=== PATIENT | female | born 1960 | race African-American/Black ===

== ENCOUNTER 2017-10-25 12:20 | Emergency (ER) | payer MEDICAID ==
[~2017-10-25] VITALS: Ht 175.3 cm; Wt 88.0 kg
[~2017-10-25 12:20] MED LIST: LISI10TA5 PO; NAPR-677
[2017-10-25] MEDS ORDERED: IBUPROFEN 600MG TABLET PO ONE (12:45)
[2017-10-25] MEDS ORDERED: CYCLOBENZAPRINE 10MG TABLET PO ONE (13:30)
[2017-10-25 13:40] VITALS: BP 182/104
== END 2017-10-25 13:43 | disposition home or self-care (01) ==
LOC: ER 12:59
DX: S40.011A Contusion of right shoulder, initial encounter (principal); M62.830 Muscle spasm of back; E05.90 Thyrotoxicosis, unspecified without thyrotoxic crisis or storm; I10 Essential (primary) hypertension; W20.8XXA Other cause of strike by thrown, projected or falling object, initial encounter; Y93.89 Activity, other specified; Y92.59 Other trade areas as the place of occurrence of the external cause; Y99.8 Other external cause status
CPT/HCPCS: 73030; 99284

== ENCOUNTER 2018-09-13 13:10 | Emergency (ER) | payer MEDICAID, MEDICARE ==
[~2018-09-13] VITALS: Ht 175.3 cm; Wt 88.0 kg
[2018-09-13 13:55] VITALS: BP 144/92
[2018-09-13] MEDS ORDERED: ZOLP10TA6 PO (13:59)
== END 2018-09-13 18:12 | disposition left against medical advice (07) ==
LOC: ER 13:10
DX: Z53.21 Procedure and treatment not carried out due to patient leaving prior to being seen by health care provider (principal)

== ENCOUNTER 2018-11-13 11:48 | Emergency (ER) | payer MEDICARE ==
[~2018-11-13] VITALS: Ht 175.3 cm; Wt 89.0 kg
[~2018-11-13 11:48] MED LIST changes: -LISI10TA5 PO; +ZOLP10TA6 PO
[2018-11-13] MEDS ORDERED: KETOROLAC 60MG/2ML VIAL IM ONE (13:30)
[2018-11-13 16:34] VITALS: BP 148/85
== END 2018-11-13 16:35 | disposition home or self-care (01) ==
LOC: ER 11:48
DX: S16.1XXA Strain of muscle, fascia and tendon at neck level, initial encounter (principal); V49.60XA Unspecified car occupant injured in collision with unspecified motor vehicles in traffic accident, initial encounter; Y93.89 Activity, other specified; Y92.410 Unspecified street and highway as the place of occurrence of the external cause; S39.012A Strain of muscle, fascia and tendon of lower back, initial encounter; I71.2 Thoracic aortic aneurysm, without rupture
CPT/HCPCS: 72100; 72125; 96372; 99284; J1885

== ENCOUNTER 2019-01-10 14:15 | Emergency (ER) | payer MEDICARE ==
[~2019-01-10] VITALS: Ht 175.3 cm; Wt 88.1 kg
[2019-01-10] MEDS ORDERED: ACETAMINOPHEN 500MG TABLET PO NR (15:45)
[2019-01-10 16:20] VITALS: BP 136/100
== END 2019-01-10 16:21 | disposition home or self-care (01) ==
LOC: ER 14:15
DX: S16.1XXA Strain of muscle, fascia and tendon at neck level, initial encounter (principal); S39.012A Strain of muscle, fascia and tendon of lower back, initial encounter; V49.59XA Passenger injured in collision with other motor vehicles in traffic accident, initial encounter; Y93.89 Activity, other specified; Y92.410 Unspecified street and highway as the place of occurrence of the external cause
CPT/HCPCS: 99282

== ENCOUNTER 2019-02-11 11:38 | Emergency (ER) | payer MEDICARE ==
[~2019-02-11] VITALS: Ht 177.8 cm; Wt 90.0 kg
[2019-02-11 12:55] LABS: BG BASE EXCESS 4.7 mmol/L (-2.0-2.0); BG CARBOXYHEMOGLOBIN 0.6 % (0.5-1.5); BG DEOXYHEMOGLOBIN 5.3 % (0.0-5.0); BG FRACTION INSPIRED OXYGEN 21; BG HCO3 ACT 27.3 mmol/L (22.0-26.0); BG OXYGEN SATURATION 94.7 % (92.0-98.5); BG OXYHEMOGLOBIN 94.1 % (94.0-97.0); BG PCO2 34.3 mmHg (35.0-45.0); BG PH 7.519 (7.350-7.450); BG PO2 66.3 mmHg (75.0-100.0); BG SAMPLE SITE RIGHT BRACHIAL; BG VENT MODE ROOM AIR
[2019-02-11] MEDS ORDERED: ALBUTEROL (0.5%) 2.5MG/0.5ML NEB HHN ONE (13:30)
[2019-02-11] MEDS ORDERED: LORAZEPAM 1MG TABLET PO ONE (13:45)
[2019-02-11 14:01] LABS: BASOPHILS % 0.8 % (0.0-2.0); CHLORIDE 102 mEq/L (98-107); EOSINOPHILS % 3.7 % (0.0-5.0); HEMATOCRIT. 45.9 % (36.0-48.0); HEMOGLOBIN. 15.3 g/dL (12.0-16.0); LYMPHOCYTES % 44.9 % (20.0-50.0); MEAN CORPUSCULAR HEMOGLOBIN 30.1 pg (28.0-32.0); MEAN CORPUSCULAR VOLUME 90.7 fL (81.0-99.0); MEAN PLATELET VOLUME 8.3 fl (7.4-10.4); NEUTROPHILS % 43.6 % (40.0-76.0); PLATELET 328 x1000/uL (130-400); RED BLOOD CELL COUNT 5.06 mill/uL (4.2-5.4); RED CELL DISTRIBUTION WIDTH 15.2 % (11.6-14.6)
[2019-02-11 15:34] LABS: *AMPHETAMINES SCREEN URINE NEGATIVE (NEGATIVE); *BARBITURATES SCREEN URINE NEGATIVE (NEGATIVE); *BENZODIAZEPINES SCREEN URINE NEGATIVE (NEGATIVE); *COCAINE SCREEN URINE NEGATIVE (NEGATIVE); METHADONE URINE SCREEN NEGATIVE (NEGATIVE); OPIATES URINE SCREEN NEGATIVE (NEGATIVE); PHENCYCLIDINE URINE SCREEN NEGATIVE (NEGATIVE)
[2019-02-11 15:35] LABS: CANNABINOID URINE SCREEN NEGATIVE (NEGATIVE)
[2019-02-11 16:47] VITALS: BP 112/79
== END 2019-02-11 16:54 | disposition home or self-care (01) ==
LOC: ER 11:38
DX: R06.02 Shortness of breath (principal)
CPT/HCPCS: 36415; 36600; 71045; 71250; 80053; 80305; 82375; 82805; 83880; 84484; 85025; 93005; 94640; 99284; J7611; Z7610

== ENCOUNTER 2019-10-19 13:17 | Inpatient (IN) | payer MEDICAID, MEDICARE ==
[~2019-10-19] VITALS: Ht 177.8 cm; Wt 86.6 kg
[2019-10-19] MEDS ORDERED: SODIUM CHLORIDE 0.9% 1,000 ML IV ONE ×2 (14:23→14:31)
[2019-10-19] MEDS ORDERED: MORPHINE SULFATE 4 MG/ML CPJ (NOT FOR IM USE) IV STA (14:31)
[2019-10-19] MEDS ORDERED: FAMOTIDINE 20MG/2ML VIAL IV STA (14:31)
[2019-10-19] MEDS ORDERED: ONDANSETRON HCL 4MG/2ML INJ IV STA (14:31)
[2019-10-19 14:53] LABS: CHLORIDE 96 mEq/L (98-107)
[2019-10-19 14:58] LABS: INR 1.1; PROTHROMBIN TIME 11.4 sec (9.6-11.0)
[2019-10-19 15:13] LABS: BASOPHILS % 0.5 % (0.0-2.0); EOSINOPHILS % 0.2 % (0.0-5.0); HEMATOCRIT. 45.9 % (36.0-48.0); HEMOGLOBIN. 15.7 g/dL (12.0-16.0); MEAN CORPUSCULAR VOLUME 90.8 fL (81.0-99.0); MEAN PLATELET VOLUME 8.8 fl (7.4-10.4); MONOCYTES % 8.4 % (2.0-8.0); NEUTROPHILS % 72.9 % (40.0-76.0); PLATELET 250 x1000/uL (130-400); RED BLOOD CELL COUNT 5.05 mill/uL (4.2-5.4); RED CELL DISTRIBUTION WIDTH 15.2 % (11.6-14.6)
[2019-10-19 15:22] LABS: CLARITY URINE CLOUDY (CLEAR); COLOR URINE YELLOW (YELLOW); KETONES URINE 1+ (NEGATIVE); LEUKOCYTE ESTERASE URINE NEGATIVE (NEGATIVE); NITRITE URINE NEGATIVE (NEGATIVE); OCCULT BLOOD URINE 1+ (NEGATIVE); PROTEIN URINE TRACE (NEGATIVE); SPECIFIC GRAVITY URINE 1.017 (1.005-1.030)
[2019-10-19] MEDS ORDERED: POTASSIUM CHLORIDE 20MEQ TABLET SR PO ONE ×2 (17:45→18:30)
[2019-10-19] MEDS ORDERED: DIATR MEGLU/DIATRIZOATE SOLN 30ML ONE (17:56)
[2019-10-19] MEDS ORDERED: TRAZODONE HCL 50MG TABLET PO PRN (18:30)
[2019-10-19] MEDS ORDERED: ACETAMINOPHEN 325MG TABLET PO PRN (18:30)
[2019-10-19] MEDS ORDERED: MORPHINE SULFATE 4 MG/ML CPJ (NOT FOR IM USE) IV PRN (18:30)
[2019-10-19] MEDS ORDERED: ONDANSETRON HCL 4MG/2ML INJ IV PRN (18:30)
[2019-10-19] MEDS ORDERED: IOHEXOL-300 100 ML BOTTLE ONE (20:53)
[2019-10-20] VITALS (7 sets, daily range): BP systolic 103–122; BP diastolic 60–78
[2019-10-20] MEDS: MORPHINE SULFATE 2 MG/ML CPJ (NOT FOR IM USE) IV PRN ×2 (03:00→22:35)
[2019-10-20] MEDS: DEXT 5%/0.45% NACL 1000ML 1,000 ML IV SCH ×2 (06:31→21:06)
[2019-10-20 06:42] LABS: BASOPHILS % 0.5 % (0.0-2.0); EOSINOPHILS % 1.6 % (0.0-5.0); HEMATOCRIT. 40.8 % (36.0-48.0); HEMOGLOBIN. 13.9 g/dL (12.0-16.0); LYMPHOCYTES % 25.1 % (20.0-50.0); MEAN CORPUSCULAR HEMOGLOBIN 30.8 pg (28.0-32.0); MEAN CORPUSCULAR VOLUME 90.2 fL (81.0-99.0); MEAN PLATELET VOLUME 8.8 fl (7.4-10.4); MONOCYTES % 9.4 % (2.0-8.0); NEUTROPHILS % 63.4 % (40.0-76.0); PLATELET 211 x1000/uL (130-400); RED BLOOD CELL COUNT 4.52 mill/uL (4.2-5.4); RED CELL DISTRIBUTION WIDTH 14.7 % (11.6-14.6)
[2019-10-20 06:58] LABS: CHLORIDE 98 mEq/L (98-107)
[2019-10-20] MEDS ORDERED: TRAM50TA94 MT (07:50)
[2019-10-20] MEDS ORDERED: TRIA1TAB92 MT (07:50)
[2019-10-20] MEDS ORDERED: DICL50TA9 MT (07:50)
[2019-10-20] MEDS ORDERED: OXYB5TAB17 PO (07:50)
[2019-10-20] MEDS ORDERED: POTASSIUM CHLORIDE 20MEQ TABLET SR PO NR (10:00)
[2019-10-20] MEDS ORDERED: PNEUMOCOCCAL 23-VAL P-SAC VAC 0.5 ML IM ONE (12:00)
[2019-10-20] MEDS ORDERED: MIDAZOLAM HCL 5 MG/5 ML VIAL ONE (15:45)
[2019-10-20] MEDS ORDERED: FENTANYL CITRATE/PF 50MCG/ML 2ML VIAL ONE (15:45)
[2019-10-20] MEDS ORDERED: MIDAZOLAM HCL 5 MG/5 ML VIAL IV PRN (15:55)
[2019-10-20] MEDS ORDERED: FENTANYL CITRATE/PF 50MCG/ML 2ML VIAL IV PRN (15:57)
[2019-10-20 21:05] LABS: CHLORIDE 101 mEq/L (98-107)
[2019-10-20 21:09] LABS: AMYLASE 101 IU/L (25-115)
[2019-10-20] MEDS: HEPARIN 5000 UNITS/ML VIAL SUBCUT SCH (21:50)
[2019-10-21] VITALS: BP 103/61
[2019-10-21 04:00] VITALS: BP 108/65
[2019-10-21 05:15] LABS: BASOPHILS % 0.4 % (0.0-2.0); EOSINOPHILS % 7.2 % (0.0-5.0); HEMATOCRIT. 40.4 % (36.0-48.0); HEMOGLOBIN. 13.7 g/dL (12.0-16.0); LYMPHOCYTES % 30.4 % (20.0-50.0); MEAN CORPUSCULAR HEMOGLOBIN 30.9 pg (28.0-32.0); MEAN CORPUSCULAR VOLUME 91.4 fL (81.0-99.0); MEAN PLATELET VOLUME 8.5 fl (7.4-10.4); MONOCYTES % 6.7 % (2.0-8.0); NEUTROPHILS % 55.3 % (40.0-76.0); PLATELET 228 x1000/uL (130-400); RED BLOOD CELL COUNT 4.42 mill/uL (4.2-5.4); RED CELL DISTRIBUTION WIDTH 14.8 % (11.6-14.6)
[2019-10-21 05:40] LABS: CHLORIDE 101 mEq/L (98-107)
[2019-10-21 08:00] VITALS: BP 102/72
[2019-10-21] MEDS: HEPARIN 5000 UNITS/ML VIAL SUBCUT SCH ×2 (08:32→08:33)
[2019-10-21] MEDS: DEXT 5%/0.45% NACL 1000ML 1,000 ML IV SCH (10:14)
[2019-10-21] MEDS: MORPHINE SULFATE 2 MG/ML CPJ (NOT FOR IM USE) IV PRN (10:14)
[2019-10-21 11:53] LABS: CREATINE KINASE 104 IU/L (26-192)
[2019-10-21 12:00] VITALS: BP 131/74
[2019-10-21] MEDS ORDERED: KETOROLAC 30MG/ML VIAL IV PRN (13:00)
[2019-10-21] MEDS ORDERED: PANT40TA4 MT (13:02)
[2019-10-21 13:12] VITALS: BP 131/74
== END 2019-10-21 13:52 | disposition home or self-care (01) | DRG 241 ==
LOC: ER 13:17 → 6EST 17:21 → EDBEDREQSVC 17:24 → EDBEDREQ 17:24 → EDBEDREQSVC 18:35 → EDBEDREQTM 22:23 → ENRESERV 23:12
PROVIDERS: ADMIT Internal Medicine; ATTEND Internal Medicine
PROC: 0DB68ZX Excision of Stomach, Via Natural or Artificial Opening Endoscopic, Diagnostic (ICD-10-PCS; principal; 2019-10-20)
DX: K29.70 Gastritis, unspecified, without bleeding (principal); K85.90 Acute pancreatitis without necrosis or infection, unspecified; I71.2 Thoracic aortic aneurysm, without rupture; E87.8 Other disorders of electrolyte and fluid balance, not elsewhere classified; E87.1 Hypo-osmolality and hyponatremia; K29.80 Duodenitis without bleeding; D72.810 Lymphocytopenia; G89.4 Chronic pain syndrome; E87.6 Hypokalemia; I10 Essential (primary) hypertension; E03.9 Hypothyroidism, unspecified; E78.00 Pure hypercholesterolemia, unspecified; E21.3 Hyperparathyroidism, unspecified; M47.9 Spondylosis, unspecified; K75.9 Inflammatory liver disease, unspecified; D25.9 Leiomyoma of uterus, unspecified; I45.10 Unspecified right bundle-branch block; I71.4 Abdominal aortic aneurysm, without rupture; R79.89 Other specified abnormal findings of blood chemistry; Z91.040 Latex allergy status; Z91.09 Other allergy status, other than to drugs and biological substances; Z79.899 Other long term (current) drug therapy; Z86.79 Personal history of other diseases of the circulatory system; Z82.49 Family history of ischemic heart disease and other diseases of the circulatory system
CPT/HCPCS: 36415; 71045; 74176; 74177; 74181; 76705; 80053; 80061; 81003; 82150; 82248; 82550; 83735; 83880; 84484; 85025; 86301; 86705; 86709; 86803; 87340; 88305; 88312; 88313; 90732; 93005; 93306; 96374; 99285; J1644; J2250; J2270; J2405; J3010; J3490; J7030; Q9963; Q9967

== ENCOUNTER 2020-01-18 16:04 | Emergency (ER) | payer MEDICAID ==
[~2020-01-18] VITALS: Ht 175.3 cm; Wt 84.8 kg
[~2020-01-18 16:04] MED LIST changes: -NAPR-677; +OXYB5TAB17 PO; +PANT40TA4 MT; +TRAM50TA94 MT; +TRIA1TAB92 MT
[2020-01-18] MEDS ORDERED: ONDANSETRON 4MG ODT PO ONE (17:15)
[2020-01-18] MEDS ORDERED: ACETAMINOPHEN 325MG TABLET PO ONE (17:15)
[2020-01-18] MEDS ORDERED: METOCLOPRAMIDE HCL 10MG/2ML VIAL IV ONE (18:15)
[2020-01-18] MEDS ORDERED: DIPHENHYDRAMINE 50MG/ML VIAL IV ONE (18:15)
[2020-01-18 18:46] LABS: CHLORIDE 99 mEq/L (98-107)
[2020-01-18 19:02] LABS: BASOPHILS % 0.6 % (0.0-2.0); EOSINOPHILS % 2.1 % (0.0-5.0); HEMATOCRIT. 45.1 % (36.0-48.0); HEMOGLOBIN. 14.9 g/dL (12.0-16.0); LYMPHOCYTES % 43.7 % (20.0-50.0); MEAN CORPUSCULAR HEMOGLOBIN 29.9 pg (28.0-32.0); MEAN CORPUSCULAR VOLUME 90.5 fL (81.0-99.0); MEAN PLATELET VOLUME 8.6 fl (7.4-10.4); NEUTROPHILS % 46.6 % (40.0-76.0); PLATELET 274 x1000/uL (130-400); RED BLOOD CELL COUNT 4.99 mill/uL (4.2-5.4); RED CELL DISTRIBUTION WIDTH 14.7 % (11.6-14.6)
[2020-01-18] MEDS ORDERED: POTASSIUM CHLORIDE 20MEQ TABLET SR PO ONE (19:15)
[2020-01-18 19:38] VITALS: BP 128/85
== END 2020-01-18 19:40 | disposition home or self-care (01) ==
LOC: ER 16:04
DX: R51 Headache (principal); I10 Essential (primary) hypertension; E05.90 Thyrotoxicosis, unspecified without thyrotoxic crisis or storm
CPT/HCPCS: 36415; 70450; 80053; 85025; 96374; 96375; 99284; J1200; J2765; Q0162

== ENCOUNTER 2020-04-21 18:46 | Emergency (ER) | payer MEDICAID ==
[~2020-04-21] VITALS: Ht 175.3 cm; Wt 86.0 kg
[~2020-04-21 18:46] MED LIST changes: -PANT40TA4 MT; +PANT40TA51 MT
[2020-04-21 18:49] VITALS: BP 134/94
[2020-04-21] MEDS ORDERED: MAGNESIUM/ALUMINUM HYDROXIDE/SIMETHICONE 30ML UDC PO STA (18:53)
[2020-04-21] MEDS ORDERED: VISCOUS LIDOCAINE 2% 15 ML UDC PO STA (18:53)
[2020-04-21] MEDS ORDERED: ACETAMINOPHEN 325MG TABLET PO ONE (19:00)
== END 2020-04-21 22:38 | disposition left against medical advice (07) ==
LOC: ER 18:46
DX: R10.13 Epigastric pain (principal); R07.89 Other chest pain; I10 Essential (primary) hypertension; E03.9 Hypothyroidism, unspecified; Z53.21 Procedure and treatment not carried out due to patient leaving prior to being seen by health care provider
CPT/HCPCS: 93005; 99283

== ENCOUNTER 2021-07-11 09:55 | Inpatient (IN) | payer MEDICAID ==
[~2021-07-11] VITALS: Ht 175.3 cm; Wt 88.0 kg
[2021-07-11 11:19] LABS: HEMATOCRIT. 40.7 % (36.0-48.0); HEMOGLOBIN. 13.6 g/dL (12.0-16.0); MEAN CORPUSCULAR HEMOGLOBIN 29.7 pg (28.0-32.0); MEAN CORPUSCULAR VOLUME 88.8 fL (81.0-99.0); MEAN PLATELET VOLUME 7.9 fl (7.4-10.4); PLATELET 230 x1000/uL (130-400); RED BLOOD CELL COUNT 4.58 mill/uL (4.2-5.4)
[2021-07-11 11:26] LABS: CHLORIDE 107 mEq/L (98-107)
[2021-07-11 11:52] LABS: PLATELET ESTIMATE NORMAL
[2021-07-11] MEDS ORDERED: ASPIRIN 81MG TABLET PO ONE (15:00)
[2021-07-11] MEDS ORDERED: GUAIFENESIN 200MG/10ML SUGAR FREE UDC PO PRN (18:45)
[2021-07-11] MEDS ORDERED: ACETAMINOPHEN 325MG TABLET PO PRN (18:45)
[2021-07-11] MEDS ORDERED: MAGNESIUM/ALUMINUM HYDROXIDE/SIMETHICONE 30ML UDC PO PRN (18:45)
[2021-07-11] MEDS ORDERED: ENOXAPARIN 40MG/0.4ML SYR SUBCUT SCH ×3 (18:45→20:00)
[2021-07-11] MEDS ORDERED: DIPHENHYDRAMINE 50MG/ML VIAL IV PRN (18:45)
[2021-07-11] MEDS ORDERED: CLONIDINE 0.1MG TABLET PO PRN (18:45)
[2021-07-11] MEDS ORDERED: DOCUSATE SODIUM 100MG CAPSULE PO PRN (18:45)
[2021-07-11] MEDS ORDERED: HYDROCODONE/ACETAMINOPHEN 5/325MG TABLET PO PRN (18:45)
[2021-07-11] MEDS ORDERED: ONDANSETRON HCL 4MG/2ML INJ IV PRN (18:45)
[2021-07-11] MEDS ORDERED: IPRATROPIUM/ALBUTEROL 0.5-3(2.5)MG/3ML NEB HHN PRN (18:45)
[2021-07-11] MEDS ORDERED: HYDRALAZINE 20MG/ML VIAL IV PRN (18:45)
[2021-07-11] MEDS ORDERED: LORAZEPAM 2MG/ML CPJ IV PRN (18:45)
[2021-07-11] MEDS ORDERED: MORPHINE SULFATE 2 MG/ML CPJ (NOT FOR IM USE) IV PRN (19:08)
[2021-07-11] MEDS: SODIUM CHLORIDE 0.9% INJ 3ML FLUSH IVF SCH (22:03)
[2021-07-11 22:35] LABS: CREATINE KINASE 128 IU/L (26-192)
[2021-07-11 22:36] LABS: CREATINE KINASE MB FRACTION < 1.0 ng/mL (0.5-3.6)
[2021-07-11] MEDS ORDERED: PANT40TA51 PO (23:46)
[2021-07-11] MEDS ORDERED: HYDR200T35 PO (23:46)
[2021-07-11] MEDS ORDERED: FOLI-43 PO (23:57)
[2021-07-11] MEDS ORDERED: ATOR20TA65 PO (23:57)
[2021-07-11] MEDS ORDERED: MELO-106 PO (23:57)
[2021-07-11] MEDS ORDERED: OMEG-161 PO (23:57)
[2021-07-11] MEDS ORDERED: VALS160T28 PO (23:57)
[2021-07-12] VITALS (7 sets, daily range): BP systolic 104–138; BP diastolic 59–91
[2021-07-12] MEDS: SODIUM CHLORIDE 0.9% INJ 3ML FLUSH IVF SCH ×2 (06:00→14:00)
[2021-07-12 07:23] LABS: CHLORIDE 108 mEq/L (98-107)
[2021-07-12 07:41] LABS: CREATINE KINASE MB FRACTION < 1.0 ng/mL (0.5-3.6)
[2021-07-12 07:42] LABS: BASOPHILS % 0.3 % (0.0-2.0); CREATINE KINASE 115 IU/L (26-192); EOSINOPHILS % 4.4 % (0.0-5.0); HEMATOCRIT. 41.2 % (36.0-48.0); HEMOGLOBIN. 13.7 g/dL (12.0-16.0); LYMPHOCYTES % 54.2 % (20.0-50.0); MEAN CORPUSCULAR HEMOGLOBIN 29.6 pg (28.0-32.0); MEAN CORPUSCULAR VOLUME 88.8 fL (81.0-99.0); MEAN PLATELET VOLUME 8.5 fl (7.4-10.4); MONOCYTES % 6.9 % (2.0-8.0); NEUTROPHILS % 34.2 % (40.0-76.0); PLATELET 224 x1000/uL (130-400); RED BLOOD CELL COUNT 4.63 mill/uL (4.2-5.4); RED CELL DISTRIBUTION WIDTH 15.1 % (11.6-14.6)
[2021-07-12] MEDS ORDERED: HEPARIN SODIUM 1,000 UNIT/1ML VIAL IV ONE (08:33)
[2021-07-12] MEDS ORDERED: NITROGLYCERIN 50MCG/ML 10ML VIAL (CATH LAB) IV ONE (08:33)
[2021-07-12] MEDS ORDERED: NICARDIPINE 100MCG/ML 10ML VIAL (CATH LAB) IV ONE (08:33)
[2021-07-12] MEDS ORDERED: MIDAZOLAM HCL 2 MG/2 ML VIAL ONE ×2 (08:49→12:22)
[2021-07-12] MEDS ORDERED: FENTANYL CITRATE/PF 50MCG/ML 2ML VIAL ONE ×2 (08:50→12:21)
[2021-07-12] MEDS ORDERED: DIPHENHYDRAMINE 50MG/ML VIAL ONE ×2 (08:50→13:03)
[2021-07-12] MEDS ORDERED: IODIXANOL 320MG/ML 100 ML BOTTLE IV ONE ×2 (08:50→12:23)
[2021-07-12] MEDS ORDERED: HEPARIN 1,000 UNITS PREMIX 0 ML IV ONE (08:51)
[2021-07-12] MEDS ORDERED: VERAPAMIL HCL 2.5 MG/1 ML 2ML VIAL IV ONE (12:17)
[2021-07-12] MEDS ORDERED: LIDOCAINE HCL 1% 20ML VIAL (Pyxis) INJ ONE (12:17)
[2021-07-12] MEDS ORDERED: IOHEXOL-350 100 ML BOTTLE ONE (12:24)
[2021-07-12] MEDS ORDERED: ATROPINE SULFATE 0.1MG/ML 10ML DISP.SYRIN ONE (12:27)
[2021-07-12] MEDS ORDERED: SODIUM CHLORIDE 0.45% 1,000 ML IV SCH (14:00)
[2021-07-12] MEDS ORDERED: ATROPINE SULFATE 1MG/10ML SYR IV PRN (14:00)
== END 2021-07-12 21:45 | disposition home or self-care (01) | DRG 191 ==
LOC: ER 09:55 → 5WST 16:03 → EDBEDREQ 16:05 → EDBEDREQTM 16:05 → ENRESERV 21:30
PROVIDERS: ADMIT Internal Medicine; ATTEND Internal Medicine
PROC: B211YZZ Fluoroscopy of Multiple Coronary Arteries using Other Contrast (ICD-10-PCS; principal; 2021-07-12)
PROC: 4A023N7 Measurement of Cardiac Sampling and Pressure, Left Heart, Percutaneous Approach (ICD-10-PCS; 2021-07-12)
PROC: B34HZZZ Ultrasonography of Right Upper Extremity Arteries (ICD-10-PCS; 2021-07-12)
DX: I25.110 Atherosclerotic heart disease of native coronary artery with unstable angina pectoris (principal); M32.9 Systemic lupus erythematosus, unspecified; I71.2 Thoracic aortic aneurysm, without rupture; E88.09 Other disorders of plasma-protein metabolism, not elsewhere classified; D72.819 Decreased white blood cell count, unspecified; I10 Essential (primary) hypertension; I71.9 Aortic aneurysm of unspecified site, without rupture; Z20.822 Contact with and (suspected) exposure to COVID-19; E05.90 Thyrotoxicosis, unspecified without thyrotoxic crisis or storm; M06.9 Rheumatoid arthritis, unspecified; Z91.040 Latex allergy status; Z88.8 Allergy status to other drugs, medicaments and biological substances; Z91.09 Other allergy status, other than to drugs and biological substances
CPT/HCPCS: 36415; 71045; 71275; 80053; 82550; 82553; 83880; 84443; 84484; 85025; 87426; 93005; 93458; 99285; C1769; C1887; C1893; J0461; J1200; J1644; J1650; J2250; J3010; J3490; Q9967